=== PATIENT | female | born 1990 | race American Indian/Alaskan Native ===

== ENCOUNTER 2021-07-16 18:12 | Emergency (ER) | payer MEDICAID ==
[2021-07-16 19:59] VITALS: BP 113/68
[2021-07-16 20:34] LABS: Bilirubin,Urine NEG (Negative); Blood,Urine MOD (Negative); Color,Urine Yellow (Yellow); Hyaline Casts,Urine 1 /LPF; Mucus,Urine 3+ /HPF; Protein,Urine <15 mg/dL mg/dL (Negative); WBC,Urine < 1.0 /HPF (0.0-6.0)
[2021-07-16 20:37] LABS: Basophils % (Auto) 0.5 % (0.0-1.8); Eosinophils # (Auto) 0.1 K/mm3 (0.0-0.4); Eosinophils % (Auto) 1.5 % (0.0-4.3); Hematocrit 38.9 % (30.3-42.9); Hemoglobin 13.1 gm/dl (10.1-14.3); Lymphocytes # (Auto) 2.7 K/mm3 (1.2-5.4); Lymphocytes % (Auto) 40.8 % (13.4-35.0); Mean Corpuscular HGB Conc 34 % (30-34); Mean Corpuscular Volume 94 fl (79-97); Monocytes # (Auto) 0.5 K/mm3 (0.0-0.8); Monocytes % (Auto) 7.4 % (0.0-7.3); Platelet Count 271 K/mm3 (140-440); Red Blood Count 4.13 M/mm3 (3.65-5.03); Red Cell Distribution Width 13.3 % (13.2-15.2)
--- NOTE | 2021-07-16 22:46 | Ultrasound Report ---
ULTRASOUND OBSTETRIC Indication: and bleeding Findings: There is a single, intrauterine gestational sac. Gestational sac measures about 4 mm. No pole identified at this time. The ovaries are normal. There is no free fluid. Impression: Early intrauterine gestational sac without evidence of pole at this time. Close ultrasound foll ow-up suggested. Signer Name: Yuri Cardoso MD Signed: 07/16/2021 10:42 PM Workstation Name: [id number]
--- NOTE | 2021-07-17 00:48 | Emergency Department Report ---
ED Female HPI - General Chief complaint: Vaginal Bleeding Stated complaint: ,BLEEDING & CRAMPING Time Seen by Provider: 07/17/21 00:04 Source: patient Mode of arrival: Ambulatory Limitations: No Limitations - History of Present Illness Initial comments: 30-year-old -[place] female reports possibility for as well some spotting she has been experiencing over the last few days. Reports no fever, chills, sweats. No nausea, no vomiting, no trauma, no chest pain, no palpitations. Due to follow-up with ETHNOLOGY PROFESSOR in 5 days MD Complaint: vaginal bleeding -: Gradual Radiation: non-radiating Severity: mild Quality: dull Consistency: constant Improves with: none Worsens with: none Are you Now?: Yes Associated Symptoms: vaginal bleeding. denies: abdominal pain, nausea/vomiting, fever/chills, loss of appetite, dysuria, hematuria, shortness of breath, syncope - Related Data Home Medications Medication Instructions Recorded Confirmed Last Taken Vits96/Iron Fum/Folic 1 tab PO DAILY 03/13/14 03/13/14 03/13/14 [ Tablet] Previous Rx's Medication Instructions Recorded Last Taken Type cephALEXin [Keflex] 500 mg PO Q6H #28 capsule 03/13/14 Unknown Rx Allergies Allergy/AdvReac Type Severity Reaction Status Date / Time No Known Allergies Allergy Unverified 02/20/14 17:16 ED Review of Systems ROS: Stated complaint: ,BLEEDING & CRAMPING Other details as noted in HPI Comment: All other systems reviewed and negative ED Past Medical Hx - Past Medical History Previous Medical History?: No - Surgical History Past Surgical History?: No - Social History Smoking Status: Never Smoker Substance Use Type: None - Medications Home Medications: Home Medications Medication Instructions Recorded Confirmed Last Taken Type Vits96/Iron Fum/Folic 1 tab PO DAILY 03/13/14 03/13/14 03/13/14 History [ Tablet] cephALEXin [Keflex] 500 mg PO Q6H #28 capsule 03/13/14 Unknown Rx ED Physical Exam - General Limitations: No Limitations General appearance: alert, in no apparent distress - Head Head exam: Present: atraumatic, normocephalic - Eye Eye exam: Present: normal appearance, PERRL, EOMI - ENT ENT exam: Present: mucous membranes moist - Neck Neck exam: Present: normal inspection - Respiratory Respiratory exam: Present: normal lung sounds bilaterally. Absent: respiratory distress - Cardiovascular Cardiovascular Exam: Present: regular rate, normal rhythm. Absent: systolic murmur, diastolic murmur, rubs, gallop - GI/Abdominal GI/Abdominal exam: Present: soft, normal bowel sounds - Extremities Exam Extremities exam: Present: normal inspection - Back Exam Back exam: Present: normal inspection - Neurological Exam Neurological exam: Present: alert, oriented X3 - Psychiatric Psychiatric exam: Present: normal affect, normal mood - Skin Skin exam: Present: warm, dry, intact, normal color. Absent: rash ED Course Vital Signs 07/16/21 19:52 Temperature 98.6 F Pulse Rate 68 Respiratory 16 Rate Blood Pressure 113/68 O2 Sat by Pulse 100 Oximetry ED Medical Decision Making - Lab Data Result diagrams: 07/16/21 20:23 - Radiology Data Radiology results: report reviewed [facility] [address] [place] [address] Ultrasound Report Signed Patient: JORGE L RAYA MR#: [id number] : 1990 Acct:[id number] Age/Sex: 30 / F ADM Date: 07/16/21 Loc: ED Attending Dr: Ordering Physician: MAGEN MOMIN MD Date of Service: 07/16/21 Procedure(s): US OB transvaginal Accession Number(s): [id number] cc: ED MD LILIANE ULTRASOUND OBSTETRIC Indication: and bleeding Findings: There is a single, intrauterine gestational sac. Gestational sac measures about 4 mm. No pole identified at this time. The ovaries are normal. There is no free fluid. Impression: Early intrauterine gestational sac without evidence of pole at this time. Close ultrasound follow-up suggested. Signer Name: Yuri Cardoso MD Signed: 07/16/2021 10:42 PM Workstation Name: [id number] Transcribed By: BC Dictated By: Yuri Cardoso MD Electronically Authenticated By: Yuri Cardoso MD Signed Date/Time: 07/16/212241 DD/ 38 TD/TT: - Medical Decision Making This patient presents with vaginal bleeding in the first trimester, differential diagnosis includes ectopic , IUP, month threatened/inevitable , along with a completed . Patient is HDS and without a history of coagulopathy or infectious symptoms. The ultrasound does reveal an IUP at with an elevated hCG quant Based on exam history and ED work-up patient presentation is not consistent with an ectopic , life-threatening coagulopathy, trauma, serious bacterial infection, central process or other emergency Critical care attestation.: If time is entered above; I have spent that time in minutes in the direct care of this critically ill patient, excluding procedure time. ED Disposition Clinical Impression: Threatened miscarriage Disposition: HOME / SELF CARE / HOMELESS Is pt being admited?: No Does the pt Need Aspirin: No Condition: Stable Instructions: Threatened Miscarriage, Vaginal Bleeding During , First Trimester, [id number] Additional Instructions: Please keep the appointment you have coming up this with your ETHNOLOGY PROFESSOR to reevaluate your hCG quant which is 396 this present time and review the ultrasound which was provided to you on this visit. Please refrain from any strenuous activities and be sure that you are taking your vitamins as discussed only use Tylenol for pain and be sure to stay hydrated. Return to the emergency department should you feel that your condition is worsening. Referrals: [facility] [Provider Group] - 3-5 Days
== END 2021-07-17 01:15 | disposition home or self-care (01) ==
LOC: ED 18:12
DX: O20.0 Threatened abortion (principal); Z3A.01 Less than 8 weeks gestation of pregnancy
CPT/HCPCS: 36415; 76801; 76817; 81001; 84702; 84703; 85025; 86900; 86901